=== PATIENT | female | born 1940 | race African-American/Black ===

== ENCOUNTER 2019-05-03 18:47 | Emergency (ER) | payer MEDICARE, MEDICAID, SELFPAY ==
[~2019-05-03] VITALS: Ht 170.2 cm; Wt 129.6 kg
[~2019-05-03 18:47] MED LIST: AMLO10TA55 PO; ASPI-556 PO; ATOR20TA86 PO; CHOL20004 PO; ESCI10TA PO; HYDR12.54 PO; NAPR-1183 PO; QUET50TA PO; SITA100 PO; VALS320T2 PO
[2019-05-03] MEDS ORDERED: RIVA10 PO (19:22)
[2019-05-03 19:24] LABS: GLUCOSE,POINT OF CARE 158 MG/DL (70-110)
[2019-05-03] MEDS ORDERED: PERTUSS(ACELL),DIPH,TET VAC/PF 0.5 ML VIAL IM ONE (20:15)
[2019-05-03] MEDS ORDERED: ACETAMINOPHEN 500 MG TABLET PO ONE (20:15)
[2019-05-03] MEDS ORDERED: CEPHALEXIN MONOHYDRATE 500 MG CAPSULE PO ONE (22:00)
[2019-05-03 23:45] VITALS: BP 133/77
== END 2019-05-03 22:30 | disposition home or self-care (01) ==
LOC: EMS 18:48
DX: S61.411A Laceration without foreign body of right hand, initial encounter (principal); I25.10 Atherosclerotic heart disease of native coronary artery without angina pectoris; I11.0 Hypertensive heart disease with heart failure; I50.9 Heart failure, unspecified; F32.9 Major depressive disorder, single episode, unspecified; E78.00 Pure hypercholesterolemia, unspecified; F20.9 Schizophrenia, unspecified; Z90.710 Acquired absence of both cervix and uterus; Z79.82 Long term (current) use of aspirin; W19.XXXA Unspecified fall, initial encounter; Y93.89 Activity, other specified; Y92.89 Other specified places as the place of occurrence of the external cause; Y99.8 Other external cause status
CPT/HCPCS: 12001; 90471; 90715